=== PATIENT | male | born 1950 | race Caucasian/White ===

== ENCOUNTER 2019-10-11 11:29 | Inpatient (IN) | payer OTHER ==
[~2019-10-11] VITALS: Ht 182.9 cm; Wt 92.1 kg
--- NOTE | 2019-10-11 11:39 | NUR ---
PT JULIO CESAR FROM HOME FOR ALOC WORSENING IN THE LAST TWO DAYS, DTR WENT TO SEE HIS DAD AND FOUND ON FLOOR PER TRAFFIC CONTROL SIGNALER. NO OBVIOUS INJURY NOTED, MOVING ALL EXTREMITIES, LEFT SIDE WEAKER THAN RT. LEFT HAND GRIPWEAKER THAN RT, NO SLURRED SPEECH, SO FACIAL DROOP. ABD ROUND/SOFT, TENDER WITH PALAPTION. PT AAOX3, ANSWERS QUESTIONS AND FOLLOWING SIMPLE COMMANDS.
[2019-10-11 12:00] LABS: BASOPHIL % 0.3 % (0-2); PLATELET COUNT 299 x10^3mcL (130-400); RED CELL DISTRIBUTION WIDTH 14.5 % (11.5-14.5)
--- NOTE | 2019-10-11 12:00 | NUR ---
PT GOING TO CT HEAD AT TGIS TIME.
[2019-10-11 12:18] LABS: CALCIUM 8.8 mg/dL (8.5-10.1); CHLORIDE SERUM 97 mmol/L (98-107); CREATININE SERUM 1.6 mg/dL (0.7-1.3); GFR1 46 mL/min; GLUCOSE SERUM 391 mg/dL (74-106); SODIUM SERUM 133 mmol/L (136-145)
[2019-10-11 12:22] LABS: ALBUMIN 3.4 g/dL (3.4-5.0); ALKALINE PHOSPHATASE 112 U/L (46-116); ALT/SGPT 25 U/L (16-63); AST/SGOT 27 U/L (15-37); BILIRUBIN TOTAL 0.6 mg/dL (0.20-1.00); TOTAL PROTEIN, SERUM 8.1 g/dL (6.4-8.2)
--- NOTE | 2019-10-11 12:26 | NUR ---
MEDICATED ORDERED, WILL CONT TO MONITOR. PT'S FAMILY AT BEDSIDE.
--- NOTE | 2019-10-11 12:52 | NUR ---
DR DASILVA NOTIFIED OF CRITICALLAB RESULT FOR TROPONIN AND LACTIC ACID.
--- NOTE | 2019-10-11 13:06 | NUR ---
ASSUMED CARE FROM WENDY RN. PT LAYING IN BED COMFORTABLY WITH FAMILY AT BEDSIDE.
--- NOTE | 2019-10-11 14:13 | NUR ---
ALLERGY LIST UPDATED. MD AWARE AND WILL CHANGE ZOSYN TO ROCEPHIN.
[2019-10-11] MEDS ORDERED: D-20001 TAB PO (14:49)
[2019-10-11] MEDS ORDERED: GOOD SENSE ASP325 MG PO (14:50)
[2019-10-11] MEDS ORDERED: LIPITOR80 MG PO (14:51)
[2019-10-11] MEDS ORDERED: MASON NATURAL500 M1 PO (14:52)
[2019-10-11] MEDS ORDERED: NEU300 PO (14:53)
[2019-10-11] MEDS ORDERED: CLOPIDOGREL75 M1 PO (14:53)
[2019-10-11] MEDS ORDERED: HUMULIN 70/303 ML SC ×2 (14:54→14:55)
[2019-10-11] MEDS ORDERED: KEPPRA500 MG PO (14:56)
[2019-10-11] MEDS ORDERED: LISINOPRIL2.5 MG PO (14:56)
[2019-10-11] MEDS ORDERED: METFORMIN HCL1000 MG PO (14:57)
[2019-10-11] MEDS ORDERED: METOPROLOL TART25 M1 PO (14:58)
[2019-10-11] MEDS ORDERED: RISPERDAL0.25 MG PO (14:59)
[2019-10-11] MEDS ORDERED: FLO4 PO (14:59)
--- NOTE | 2019-10-11 15:26 | NUR ---
CALLED PHARMACY, REPORTS THAT THEY WILL BE BRINGING VANCO OVER IN A MOMENT.
--- NOTE | 2019-10-11 16:16 | NUR ---
PT RESTING IN BED IN NO ACUTE DISTRESS. DENIES PAIN. VANCO IV STARTED. WILL CONT TO MONITOR.
--- NOTE | 2019-10-11 18:10 | NUR ---
REPORT GIVEN TO NURSE FOR PT.
--- NOTE | 2019-10-11 18:13 | NUR ---
PT TRANSPORTED TO [facility] AT [facility] TIME BY ARMIN AVERY AND EMT JUDY. PT IS AWAKE AND ALERT, RESP E/U, VERBALIZED UNDERSTANDING OF PLAN OF CARE FOR ADMISSION PRIOR TO TRANSPORT. NAD NOTED UPON LEAVING ED.
[2019-10-11 18:35] LABS: CHOLESTEROL/HDL RATIO 3.1
[2019-10-11 18:46] VITALS: BP 164/82
--- NOTE | 2019-10-11 19:06 | NUR ---
RECIEVED PT FROM ER, PT ADMIT FOR SEPSIS, OSTEOMYOLITIS, PT IS A/O X2, VERBAL RESPONSIVE. MILD CONFUSED AND MILD FORGETFUL. LUNG SOUND CLEAR BILATERAL, NO COUGH, NO SOB. PT IS ON TELE 4, NSR, DENY ANY CHEST PAIN OR DISCOMFORT, BOWEL SOUND PRESENT ALL 4 QUADRANTS, NO DISTENTION, NO TENDER. PEDAL PULSE PRESENT LEFT FOOT. RIGHT FOOT AMPUTATED. LEFT FOOT BIG TOE NECROTIC TISSUE WITH SMALL OPEN WOUND UNDER NAIL. WOUND CULTURE COLLECTED. LEFT FOOT RED AND SWELLING. LEFT ARM WEAKNESS NOTED DUE TO HX STROKE. IV AT LEFT FA, NO LEAKING, NO INFILTRATION. ALL ADLS ASSIST, ALL NEED MET, CALL LIGHT IN REACH, WILL CONTINUE TO MONITOR.
--- NOTE | 2019-10-11 19:30 | NUR ---
RECIEVED PT FROM RESOURCE NURSE. PT IS DROWSY BUT EASILY AROUSED. ABLE TO FOLLOW COMMANDS. TELE #4, NSR. DENIES ANY CHEST PAIN OR PRESSURE. TRACE EDEMA NOTED ON L FOOT. LUNGS CLEAR IN ALL FEILDS. ON RA, DENIES ANY SOB. EQAUL CHEST RISE AND FALL. NO SIGN OF RESP DISTRESS. BOWEL SOUNDS ARE PRESENT. L FOOT HAS ERYTHEMIC SKIN AND BLACKEN BIG TOE NOTED. LAYA. MINIMAL DRAINAGE NOTED ON TOP OF TOE. WOUND CULTURE WAS COLLECTED. HX R FOOT AMPUTATION. DENIES ANY PAIN AT THIS TIME. IV ON LFA. INTACT AND PATENT. BED IS AT LOWEST SETTING. CALL LIGHT WITHIN REACH. WILL CONTINUE TO MONITOR.
--- NOTE | 2019-10-11 20:07 | NUR ---
SPOKE WITH MD ALFARO ABOUT PT ANTIBIOTIC ORDER MAXIPIME AND PT BEING ALLERGIC TO PCN. MD IS AWARE AND WANT THE MEDICATION TO STILL BED ADMINISTERED AND MONITOR PT FOR A REACTION. REQUESTED FOR BENADRYL PRN IN CASE OF A REACTION. MD TO INPUT ORDERS. WILL MONITOR PT.
--- NOTE | 2019-10-11 20:10 | NUR ---
MD ALFARO WAS MADE AWARE OF SECOND TROP BEING ELEVATED FROM 0.885 TO 1.673. NO NEW ORDERS WERE RECIEVED AT THIS TIME. THIRD TROP TO BE DRAWN. WILL CONTINUE TO MONITOR PT.
[2019-10-11 22:26] LABS: UA SPECIFIC GRAVITY 1.025 (1.005-1.035); microscopic required? YES; urine erythrocyte 1+ (NEGATIVE)
--- NOTE | 2019-10-11 22:30 | NUR ---
PT IS MORE AWAKE AND MORE ALERT. PT IS VISIBLY SHAKING AND PER PT HE DOES THAT AT TIMES EVEN AT HOME. ASKED PT IF HE WAS COLD AND STATED A LITTLE, BLANKET WAS PROVIDED. PT TEMP WAS 98.2. PT HAD A BM, WAS CLEAN AND NEW LINEN WAS PROVIDED. SMALL POLYP WAS NOTED ON RECTAL AREA. NO BLEEDING NOTED. WILL CONITINUE TO MONITOR.
[2019-10-11 22:34] LABS: AMPHETAMINE QUAL UR NONE DETECTED (See below)
[2019-10-11 22:40] VITALS: BP 186/70
--- NOTE | 2019-10-11 23:04 | NUR ---
MD ALFARO WAS MADE AWARE OF PT HIGH BP AND ORDERED PRN HYDRALAZINE. IT WAS GIVEN PER EMAR. IS ALSO AWARE OF PT STARTING TO SHAKE AND STATED HE FEELS COLD. TEMP IS 98.7. STATED TO JUST GIVE HIM WARM BLANKETS. WARM BLANKETS GIVEN AND MADE COMFORATBLE.
[2019-10-12 00:33] VITALS: BP 159/67
--- NOTE | 2019-10-12 01:57 | NUR ---
PT IS RESTING IN BED. NO SIGN OF DISTRESS NOTED. PT TEMP IS TRENDING DOWN. ICE WAS PLACED UNDER ARM PITS. DENIES ANY PAIN. BED IS AT LOWEST SETTING. CALL LIGHT WITHIN REACH. WILL CONTINUE TO MONTIOR.
--- NOTE | 2019-10-12 03:59 | NUR ---
MD ALFARO WAS MADE AWARE OF THIRD TROP BEING 1.092. TO ORDER CARDIAC CONSULT. WILL CONTINUE TO SABINA.
[2019-10-12 05:30] VITALS: BP 142/73
--- NOTE | 2019-10-12 05:45 | NUR ---
PT IS COMPLIAINING OF L ARM PAIN RADIATING FROM HIS LEFT SHOULDER. MD ALFARO WAS MADE AWARE AND ORDERED A STAT EKG AND MORPHINE. PT IS ALLERGIC TO CODEINE AND STATES MORPHINE IS BAD FOR HIM AND GETS A BAD REACTION. MD ALFARO WAS MADE AWARE AND STATED SHE IS I THE ER AND WILL BE ABLE TO CHANGE ORDER IN TEN MINS. MD WAS MADE AWARE PT IS IN ALOT OF PAIN AND MD RECOMMEND TO CALL MD GARDUNO.
--- NOTE | 2019-10-12 05:52 | NUR ---
MD GARDUNO CAME TO THE NURSES STATION AND WAS UPDATED ON THE STAT EKG, PT PAIN AND HIS REACTION TO MORPHINE. MD TO INPUT ORDERS FOR NITRO. CHARGE NURSE WAS PRESENT.
--- NOTE | 2019-10-12 05:59 | NUR ---
NITRO WAS GIVEN PER EMAR. AT PT BEDSIDE.
--- NOTE | 2019-10-12 06:08 | NUR ---
SECOND NITRO WAS GIVEN PT STILL COMPLAINING OF L SHOULDER AND ARM PAIN. B/P IS 153/83 (106) HR 130. AT PT BEDSIDE.
--- NOTE | 2019-10-12 06:38 | NUR ---
NITRO x2 WAS GIVEN. PT STATES HE FEELS BETTER. NO MORE PAIN ON HIS L SHOULDER RADIATING TO HIS L ARM. PT MADE COMFORTABLE IN BED. BED IS AT LOWEST SETTING. CALL LIGHT WITHIN REACH. WILL ENDORSE TO AM NURSE.
--- NOTE | 2019-10-12 07:20 | NUR ---
RECEIVED PT FROM SKIDDER DRIVER NURSE. PT RESTING IN BED, AOX4, RESP E/U ON RA. DENIES LEFT FOOT PAIN AT THIS TIME. ON TELE [address], HR: 126, PT DENIES CHEST PAIN, PALPITATIONS OR SOB. IV TO LFA W/ NO SIGNS OF INFITLRATION, IVF INFUSING WELL. BED IN LOWEST POSITION AND CALL LIGHT WITHIN REACH. ULTRASOUND IN PROGRESS AT BEDSIDE. WILL CONTINUE TO MONITOR.
--- NOTE | 2019-10-12 09:25 | NUR ---
PT VS CHECKED. T: 100.2, HR: 127, BP: 209/98 (123). PT DENIES HEADACHE, NAUSEA, CHEST PAIN/PALPITATIONS OR SOB. DR. MORROW MADE AWARE. MEDICATED ORDERED PER EMAR FOR HTN AND FEVER, COOLING MEASURES IMPLEMENTED. BED IN LOWEST POSITION AND CALL LIGHT WITHIN REACH. WILL CONTINUE TO MONITOR.
--- NOTE | 2019-10-12 10:25 | NUR ---
PT SEEN AT BEDSIDE, VS REASSESSED. T: 99.2, HR: 106, BP: 135/68. PT DENIES CHEST PAIN OR SOB. PT AOX4, RESP E/U ON RA, DENIES CHEST PAIN. WILL CONTINUE TO MONITOR.
[2019-10-12 11:56] VITALS: BP 151/68
--- NOTE | 2019-10-12 12:15 | NUR ---
PT RESTING IN BED, AOX4, RESP E/U ON RA. DENIES NAUSEA OR PAIN AT THIS TIME, NO ACUTE DISTRESS NOTED. ECHO IN PROGRESS AT BEDSIDE, CALL LIGHT WITHIN REACH. WILL CONTINUE TO MONITOR.
[2019-10-12 12:20] LABS: PLATELET COUNT 216 x10^3mcL (130-400)
[2019-10-12 12:42] LABS: CALCIUM 8.6 mg/dL (8.5-10.1); CARBON DIOXIDE 22.6 mmol/L (21-32); CHLORIDE SERUM 100 mmol/L (98-107); CREATININE SERUM 1.1 mg/dL (0.7-1.3); GFR1 > 60 mL/min; GLUCOSE SERUM 214 mg/dL (74-106); MAGNESIUM 1.5 mg/dL (1.8-2.4); PHOSPHOROUS 2.6 mg/dL (2.5-4.9); POTASSIUM SERUM 4.1 mmol/L (3.5-5.1); SODIUM SERUM 130 mmol/L (136-145)
[2019-10-12 16:57] VITALS: BP 170/81
--- NOTE | 2019-10-12 18:17 | NUR ---
PT RESTING IN BED, AOX4, RESP E/U ON RA. VS CHECKED AT THIS TIME, BP: 195/86, HR: 98. DENIES HEADACHE, CHEST PAIN OR SOB. MEDICATED ORDERED PER EMAR FOR HTN, COMFORT MEASURES IMPLEMTENTED. BED IN LOWEST POSITION AND CALL LIGHT WITHIN REACH. WILL CONTINUE TO MONITOR.
--- NOTE | 2019-10-12 19:22 | NUR ---
PT SEEN AT BEDSIDE. VS CHECKED, BP: 153/77. DENIES CHEST PAIN OR SOB. NO ACUTE DISTRESS NOTED. DRESSING TO L FOOT CDI. BED IN LOWEST POSITION AND CALL LIGHT WITHIN REACH. CARE ENDORSED TO ARMIN LIZARRAGA.
[2019-10-12 19:32] VITALS: BP 119/77
--- NOTE | 2019-10-12 19:35 | NUR ---
RECEIEVED REPORT FROM AM NURSE, PT LAYING DOWN IN BED.PT AAOX4, ABLE TO FOLLOW COMMANDS AND MAKE NEEDS KNOWN. ON TELE#4, READING ST AT 108. DENIES CP/PRESSURE AT THIS TIME. PALPABLE PULSES TO BUE, AND LLE. TRACE EDEMA NOTED TO LLE. LUNG SOUDNS CTA, BREATHING EVEN AND UNLABORED ON RA. NO ACUTE DISTRESS NOTED. ABD SOFT AND ROUND, ACTIVE BS X4 QUAD. DENIES N/V/D. VOIDS FREELY ON URINAL. LEFT SIDED WEAKNESS. USES WALKER AT HOME. WOUND TO LEFT GREAT TOE COVERED WITH DRESSING. DRESSING CDI. ERYTHEMA TO LEFT FOOT. IV TO LFA PATENT AND INTACT. SITE WNL. BED AT LOWEST SETTING. SIDE RAILS X2 UP. CALL LIGHT WITHING REACH. WILL CONT TO MONITOR.
--- NOTE | 2019-10-12 22:10 | NUR ---
MAG OF 1.[address] ALFARO. NO NEW ORDERS RECIEVED WILL CONT TO MONITOR.
--- NOTE | 2019-10-12 23:59 | NUR ---
PT LAYING DOWN IN BED WATCHING TV, BREATHING EVEN AND UNLABORED ON RA. NO ACUTE DISTRESS NOTED. LEFT LEFT ELEVATED ON PILLOW. BED AT LOWEST SETTING. SIDE RAILS X2 UP. CALL LIGHT WITHIN REACH. WILL CONT TO MONITOR.
[2019-10-13 04:53] VITALS: BP 160/77
--- NOTE | 2019-10-13 06:41 | NUR ---
PT SLEPT AT INTERVALS THROUGHOUT THE NIGHT, BREATHING EVEN AND UNLABORED ON RA. NO ACUTE DISTRESS NOTED. BP 160/77, MEDICATED WITH PRN HYDRALAZINE PER MAR. ALL NEEDS ASSESSED AND ATTENDED TO. BED AT LOWEST SETTING. SIDE RAILS X2 UP. CALL LIGHT WITHING REACH. WILL ENDORSE CARE TO AM NURSE.
[2019-10-13 06:56] LABS: CALCIUM 8.3 mg/dL (8.5-10.1); CARBON DIOXIDE 24.5 mmol/L (21-32); CHLORIDE SERUM 101 mmol/L (98-107); CREATININE SERUM 0.9 mg/dL (0.7-1.3); GFR1 > 60 mL/min; GLUCOSE SERUM 189 mg/dL (74-106); MAGNESIUM 1.6 mg/dL (1.8-2.4); PHOSPHOROUS 2.2 mg/dL (2.5-4.9); POTASSIUM SERUM 3.9 mmol/L (3.5-5.1); SODIUM SERUM 136 mmol/L (136-145)
[2019-10-13 06:59] LABS: BASOPHIL % 0.7 % (0-2); PLATELET COUNT 203 x10^3mcL (130-400)
--- NOTE | 2019-10-13 07:16 | NUR ---
RECEIVED PT FROM SHIP BOAT OR BARGE MATE NURSE. PT RESTING IN BED, AOX4, RESP E/U ON RA. C/O MILD CHEST TIGHTNESS AND SOB, DENIES CHEST PAIN. HOB ELEVATED, PT REPOSITIONED TO COMFORTABLE POSITION. IV ON TELE 4 SHOWING NSR, HR: 96. IV TO LFA W/ NO SIGNS OF INFILTRATION, IVF INFUSING WELL. DRESSING TO LEFT FOOT CDI, EXTREMITY ELEVATED ON PILLOW. BED IN LOWEST POSITION AND CALL LIGHT WITHIN REACH. WILL CONTINUE TO MONITOR.
--- NOTE | 2019-10-13 07:18 | NUR ---
CURRENT BP 162/77, CARE ENDORSED TO RAMONE FUNEZ.
[2019-10-13 07:37] VITALS: BP 149/71
--- NOTE | 2019-10-13 09:25 | NUR ---
WOUND CONSULT NOT DONE,PT. SEEN AND EXAMED BY DR. STATON ON LEFT FOOT WOUND. WILL FOLLOW HIS ORDER.
[2019-10-13 12:17] VITALS: BP 189/83
--- NOTE | 2019-10-13 12:44 | NUR ---
PT SITTING UPRIGHT IN BED HAVING LUNCH, AOX4, RESP E/U ON RA. DENIES CHEST PAIN/TIGHTNESS OR FOOT PAIN. NO ACUTE DISTRESS NOTED. BED IN LOWEST POSITION AND CALL LIGHT WITHIN REACH. WILL CONTINUE TO MONITOR.
[2019-10-13 14:10] VITALS: BP 143/72
--- NOTE | 2019-10-13 18:05 | NUR ---
PT RESTING IN BED, AOX4, RESP E/U ON RA. DENIES CHEST PAIN/TIGHTNESS, SOB OR FOOT PAIN. NO ACUTE DISTRESS NOTED. IV TO L HAND W/ NO SIGNS OF INFILTRATION, IVF INFUSING WELL. DRESSING TO L FOOT CDI, EXTREMITY ELEVATED ON PILLOW. BED IN LOWEST POSITION AND CALL LIGHT WITHIN REACH. WILL ENDORSE TO ONCOMING NURSE.
--- NOTE | 2019-10-13 19:10 | NUR ---
RECEIVED REPORT FROM DAY SHIFT NURSE, JOSÉ MIGUEL FUNEZ. PT IS AAOX4. SPEECH IS CLEAR. DENIES GALVAN. ON TELE #[address] 97[address] DENIES CP. PULSES ARE PALPABLE. TRACE EDEMA NOTED TO L FOOT. BREATHING IS EVEN AND UNLABORED ON RA. LUNG SOUNDS CTA. NO SIGNS OF RESP DISTRESS. ABD IS SOFT AND ROUND. DENIES N/V/D. VOIDS FREELY. DENIES DYSURIA. URINAL AT BEDSIDE. L SIDED WEAKNESS FROM HX OF STROKE LAST JANUARY. NECROTIC WOUND NOTED ON L BIG TOE, DRSG CDI. DENIES ANY PAIN AT THIS TIME. IV TO L HAND DRY AND INTACT. NO ERYTHEMA NOTED. BED IN LOWEST POSITION. BED ALARM ON. CALL LIGHT WITHIN REACH. WILL CONTINUE TO MONITOR.
[2019-10-13 19:23] VITALS: BP 169/75
--- NOTE | 2019-10-13 22:10 | NUR ---
ROUTINE MEDICATIONS WERE GIVEN AND TOLERATED WELL. NO ACUTE DISTRESS NOTED. BREATHING IS EVEN AND UNLABORED ON RA. DENIES SOB. NO SIGNS OF RESP. DISTRESS. DENIES ANY N/V/GALVAN OR PAIN. REPOSITIONED PT. BED IN LOWEST POSITION. CALL LIGHT WITHIN REACH. WILL CONTINUE TO MONITOR.
--- NOTE | 2019-10-14 01:15 | NUR ---
PT IS RESTING IN BED COMFORTABLY, WATCHING TV. DENIES ANY PAIN. BREATHING IS EVEN AND UNLABORED ON RA. NO SIGNS OF RESP. DISTRESS. ABX BEING ADMINISTERED. WILL MONITOR FOR ADVERSE EFFECTS. INFORMED PT TO REPORT IF HE EXPERIENCES ANY ITCHINESS OR DIFFICULTY BREATHING. BED IN LOWEST POSITION. CALL LIGHT WITHIN REACH. WILL CONTINUE TO MONITOR.
--- NOTE | 2019-10-14 03:24 | NUR ---
PT IS RESTING COMFORTABLY, WATCHING TV. BREATHING IS EVEN AND UNLABORED ON RA. NO SIGNS OF RESP. DISTRESS. PT DENIES ANY PAIN AT THIS TIME. BED IN LOWEST POSITION. CALL LIGHT WITHIN REACH. WILL CONTINUE TO MONITOR.
--- NOTE | 2019-10-14 04:45 | NUR ---
PT SLELPT IN SHORT INTERVALS THROUGHOUT THE NIGHT AND COMPLIED WITH NURSING CARE WITH NO ACUTE EVENTS OCCURRING DURING THE SHIFT. COMFORT AND SAFETY MEASURES MAINTAINED. ALL NEEDS ASSESSED AND ATTENDED TO. BED IN LOWEST POSITION. CALL LIGHT WITHIN REACH. WILL CONTINUE TO MONITOR AND ENDORSE CARE TO DAY SHIFT NURSE.
[2019-10-14 05:23] VITALS: BP 154/80
[2019-10-14 07:06] LABS: BASOPHIL % 0.4 % (0-2); PLATELET COUNT 221 x10^3mcL (130-400); RED CELL DISTRIBUTION WIDTH 14.2 % (11.5-14.5)
--- NOTE | 2019-10-14 07:20 | NUR ---
RECEIVED REPORT FROM NIGHT NURSE PATIENT SITTING UP IN BED A&O X4 PATIENT DENIES ANY PAIN AT THIS TIME. NO SOB NOTICED. IV ON L HAND PATENT AND INTACT NO REDNESS OR EDEMA NOTED. TELE 12 ON PATIENT NO S/S OF ACUTE DISTRESS. ALL QUESTIONS AND CONCERNS ADDRESSED AT THIS TIME. BED IN LOWEST POSITION AND CALL LIGHT WITHIN REACH. WILL CONTINUE TO MONITOR.
[2019-10-14 07:39] LABS: CALCIUM 8.9 mg/dL (8.5-10.1); CARBON DIOXIDE 22.7 mmol/L (21-32); CHLORIDE SERUM 101 mmol/L (98-107); GFR1 > 60 mL/min; GLUCOSE SERUM 147 mg/dL (74-106); MAGNESIUM 1.9 mg/dL (1.8-2.4); PHOSPHOROUS 2.9 mg/dL (2.5-4.9); POTASSIUM SERUM 4.1 mmol/L (3.5-5.1); SODIUM SERUM 136 mmol/L (136-145)
--- NOTE | 2019-10-14 09:06 | NUR ---
ADMINISTERED SCHEDULED MED PER MAR PATIENT TOLERATED WELL NO ADVERSE REACTIONS NOTED. ALL NEEDS ATTENDED TO AT THIS TIME. HELPED PATIENT REPOSITION. PATIENT DENIES ANY PAIN AT THIS TIME. BED INLOWEST POSITION CALL LIGHT WITHIN REACH. WILL CONTINUE TO MONITOR.
--- NOTE | 2019-10-14 10:00 | NUR ---
REAPPLIED NEW DRESSING TO LEFT FOOR PATIENT TOLERATED WELL. PATIENT DENIES ANY PAIN. NO S/S OF ANY ACUTE DISTRESS. ALL NEEDS ATTENDED TO AT THIS TIME. BED IN LOWEST POSITION CALL LIGHT WITHIN REACH. WILL CONTINUE TO MONITOR.
[2019-10-14 11:50] VITALS: BP 174/78
--- NOTE | 2019-10-14 12:20 | NUR ---
Initial Nutrition Assessment: 253T/B [facility] TRAN IA HR Dx: sepsis, osteomyelitis PMHx: HTN, DM, CVA, Hyperlipidemia and right foot amputation PSHx: Right foot amputation, bilateral carpal tunnel surgery Labs: BG 189H, P 2.2L, MG 1.6L, A1C 8.0H, HGB 10.9L Meds: Apresoline, colace, D 50%, Humulin, norco, vancomycin, zofran Diet: [facility] PO intake since admission: (10/14) breakfast 85%, (10/13) breakfast 100%, (10/12) dinner 20%, lunch 50% Ht: 182.88 cm (72") Wt: 92 kg (202#) BMI: 27.5 kg/m2 Bed scale: 202# IBW: 178 (81 kg) %IBW: 113 UBW: 200-205# Age: 69/M Food Allergies: NKFA Skin: necrotic wound to L big toe Cameron: 19 Edema: trace L foot GI: Last BM: 10/11 Per H&P, Pt is a 69 years old male with PMH of HTN, DM, CVA, Hyperlipidemia and right foot amputation who brought by EMS from home due to AMS this morning. RD Note (10/14): Patient was alert and oriented and said that he did not eat his breakfast this morning as he did not like what was on the tray. However, patient said that he ate all of his dinner last night. Patient was receptive to diet education and said that he has been following a diabetic diet. FNS received wound care consult on 10/12. Problem with: N/V/D/C: none at this time Problems with: Chewing: Swallowing: no Current appetite: good Recent wt change: none %wt change: n/a Vitamin/Supplement use: pt not aware Special diet at home: Diabetic Physical activity: sedentary Nutrition education given: DM diet education was provided using [facility] handout on 'Type 2 Diabetes Nutrition Therapy'. Concepts like high fiber foods and portion control were discussed. Patient verbalized understanding and did not have any questions at this time. Food-drug interactions: none Education given: n/a Estimated Nutritional Needs Based on adjusted body weight (84 kg) Energy: 3161-5275 kcal/day (30-35 kcal/kg for infected wound) Protein: 101-117 g/day (1.2-1.4 g/kg for infected wound) Fluid: 7076-3152 mL/day (1 mL/kcal) Nutrition Diagnosis: 1. Increased nutrient needs related to increased metabolic demands as evidenced by sepsis, osteomyelitis. Intervention 1. Recommend continuing CCHO diet. 2. Recommend Jaquan BID. 3. DM diet edu provided. Discussed with AKIN Tracy. Monitor/Evaluate Goal: PO intake at least 75% of estimated needs Monitor: PO intake, Labs, GI function F/U in 7 days as low risk 10/21
--- NOTE | 2019-10-14 12:20 | NUR ---
1. Recommend continuing CCHO diet. 2. Recommend Jaquan BID. 3. DM diet edu provided. Discussed with AKIN Tracy.
[2019-10-14 12:30] VITALS: BP 158/70
--- NOTE | 2019-10-14 13:41 | NUR ---
DR GORDON AT BEDSIDE UPDATING PATIENT ON CARE
[2019-10-14 13:53] VITALS: BP 174/78
--- NOTE | 2019-10-14 13:55 | NUR ---
DR. PINTO CALLED AT REQUEST OF SHIP LABORER TO NOTIFY MD THAT [employer] WAS REQUESTING PT TO BE TRANSFERED TO CONTRACTED FACILITY FOR ANY SURGICAL INTERVENTION. MD STATED HE HAD PLANNED PROCEDURE FOR THURSDAY, THAT WOULD NEED TO BE CANCELLED. MD MADE AWARE HE WOULD BE NOTIFIED IF ANYTHING CHANGES. SPOKED WITH JUAN MANUEL FROM OR AND MADE AWARE OF CHANGES. CURRENTLY AWAITING CALL FROM INSURANCE FOR BED AVAILABILITY AND FACILITY FOR TRANSFER. ATTENDING NURSE NOTIFIED. AWAITING FURTHER ORDERS.
[2019-10-14 14:10] VITALS: BP 148/73
--- NOTE | 2019-10-14 14:47 | NUR ---
PATIENT LYING IN BED TALKING WITH FAMILY AT BEDSIDE. IV INFUSING NO REDNESS OR EDEMA NOTED. PATIENT DENIES ANY PAIN AT THIS TIME. NO S/S OF RESOIRATORY DISTRESS NOTED. ALL QUESTIONS AND CONCERNS ADDRESSED AT THIS TIME. SAFETY PRECAUTIONS IN PLACE. WILL CONTINUE TO MONITOR.
--- NOTE | 2019-10-14 16:17 | NUR ---
CALLED REPORT TO [facility] TITA FUNEZ AT [phone] SENA REEVES [facility] ETA 1700. V/S STABLE TRANSFER INSTRUCTIONS GIVEN. PATIENT STABLE FOR TRANSFER. PATIENT VERBALIZED UNDERSTANDING. ALL QUESTIONS AND CONCERNS ADDRESSED AT THIS TIME. WILL CONTINUE TO MONITOR.
--- NOTE | 2019-10-14 17:37 | NUR ---
DR GONZÁLES AT BEDSIDE CHANGING DRESSING ON RIGHT TOE. PATIENT TOLERATED WELL NO PAIN REPORTED. ALL NEEDS ATTENDED TO AT THIS TIME. SAFETY PRECAUTIONS IN PLACE. WILL CONTINUE TO MONITOR.
--- NOTE | 2019-10-14 18:16 | NUR ---
[facility] HERE FOR TRANSPORT TO [facility]. PATIENT STABLE FOR TRANSPORT. ALL PERSONAL BELONGINGS TAKEN WITH PATIENT. IV ON L HAND PATENT AND INTACT. PATIENT DENIES ANY PAIN. ALL QUESTIONS AND CONCERNS ADDRESSED. TRANSFER PAPER GIVEN TO PATIENT. PATIENT IS A&O X4 AND VERBALIZES UNDERSTANDING OF TRANSFER.
--- NOTE | 2019-10-14 18:46 | NUR ---
SPOKE WITH NURSE ARNAUD AT [facility] UPDATED ON PT'S CONDITION INCLUDING ELEVATION OF B/P UPTO 197/97 AT THIS TIME WITH [facility] CHECKED PT PRIOR TO TRANSFER. UPDATED VERBAL REPORT GIVEN REPORTED PT HAD BEEN GIVEN HYDRALAZINE AT 1633 FOR B/P 174/78, THEN AT 1816 PT WAS GIVEN 2100 DOSE OF CARVEDOLOL. WHEN [facility] ARRIVED B/P CHECKED WAS 197/97. MADE AWARE THAT PT WILL RECEIVE A NITRO SL PRIOR TO D/C AND IS ASYMPTOMATIC AT THIS TIME. MADE AWARE BY ARNAUD THAT RECEIVING NURSE WILL BE MADE AWARE AND CALL BACK NUMBER PROVIDED IN CASE THEY HAD ANY CONCERNS. AT [address] HANSON REGARDING TRANSFER AFTER ATTEMPTING X2 TO REACH COMPUTER TERMINAL OPERATOR. DR. HANSON PATTIE CHANGE PARAMETERS FRO NITRO TO BE GIVEN FOR B/P> 160, HAD BEEN ORDERED ONLY FOR CP. MD ALSO ORDER OK TO TRANSFER AFTER GIVING NITRO. [facility] STATED THEY WOULD WAIT 20MIN IF NO CHANGES PT WILL BE PLACED ON WILL CALL. ATTENDING ANSLEY MADE AWARE. NITRO SL GIVEN AT 1845.
[2019-10-14 19:14] VITALS: BP 155/70
== END 2019-10-14 20:25 | disposition short-term general hospital (02) | DRG 871 ==
LOC: ED 11:29 → DU 16:57
PROVIDERS: Emergency Medicine; ADMIT Internal Medicine
DX: A41.9 Sepsis, unspecified organism (principal); I21.A1 Myocardial infarction type 2; G93.41 Metabolic encephalopathy; N17.0 Acute kidney failure with tubular necrosis; E11.52 Type 2 diabetes mellitus with diabetic peripheral angiopathy with gangrene; I70.262 Atherosclerosis of native arteries of extremities with gangrene, left leg; E87.1 Hypo-osmolality and hyponatremia; R65.20 Severe sepsis without septic shock; L03.032 Cellulitis of left toe; E11.42 Type 2 diabetes mellitus with diabetic polyneuropathy; E11.65 Type 2 diabetes mellitus with hyperglycemia; I10 Essential (primary) hypertension; E86.0 Dehydration; E78.5 Hyperlipidemia, unspecified; Z79.4 Long term (current) use of insulin; Z89.431 Acquired absence of right foot; Z68.27 Body mass index [BMI] 27.0-27.9, adult; Z79.84 Long term (current) use of oral hypoglycemic drugs; Z86.73 Personal history of transient ischemic attack (TIA), and cerebral infarction without residual deficits
CPT/HCPCS: 82962; 83880; G0378; G0480; J0692; J2543; J3370; J3475; J7030; Q0092